=== PATIENT | female | born 1980 | race African-American/Black ===

== ENCOUNTER 2017-05-06 01:01 | Emergency (ER) | payer OTHER ==
[~2017-05-06] VITALS: Ht 160 cm; Wt 65.0 kg
[2017-05-06] MEDS ORDERED: ALBUTEROL (0.083%) 2.5MG/3ML NEB HHN STA (02:06)
[2017-05-06] MEDS ORDERED: KETOROLAC 60MG/2ML VIAL IM ONE (02:15)
[2017-05-06 04:05] VITALS: BP 118/76
== END 2017-05-06 04:05 | disposition home or self-care (01) ==
LOC: ER 01:01
DX: J40 Bronchitis, not specified as acute or chronic (principal); F17.200 Nicotine dependence, unspecified, uncomplicated; M79.1 Myalgia
CPT/HCPCS: 71010; 81025; 94640; 96372; 99283; J1885; J7611; Z7610